=== PATIENT | male | born 1955 | race Caucasian/White ===

== ENCOUNTER → 2016-08-15 | Outpatient (CLI) | payer OTHER ==
[~2016-08-15] MED LIST: AMOX1TAB64 PO; ATOR40TA78 PO; HYDR-879 PO; LOSA100T6 PO; OMEP-110 PO; SULF1TAB24 PO
== END | disposition home or self-care (01) ==
LOC: LAB 14:52
PROVIDERS: ATTEND Orthopaedic Surgery
DX: T84.59XA Infection and inflammatory reaction due to other internal joint prosthesis, initial encounter (principal)
CPT/HCPCS: 36415; 85025; 85651; 86140

== ENCOUNTER 2016-08-16 12:50 | Inpatient (IN) | payer OTHER ==
[~2016-08-16] VITALS: Ht 182.9 cm; Wt 95.5 kg
[~2016-08-16 12:50] MED LIST changes: -AMOX1TAB64 PO; -ATOR40TA78 PO; +BUPIVACAINE/PF 0.5% ONE; -HYDR-879 PO; -LOSA100T6 PO; -OMEP-110 PO; -SULF1TAB24 PO
[2016-08-16] MEDS ORDERED: LACTATED RINGERS 1,000 ML IV SCH (13:24)
[2016-08-16] MEDS ORDERED: HYDR-879 PO (13:29)
[2016-08-16] MEDS ORDERED: AMOX1TAB64 PO (13:29)
[2016-08-16] MEDS ORDERED: SULF1TAB24 PO (13:29)
[2016-08-16] MEDS ORDERED: ATOR40TA78 PO (13:29)
[2016-08-16] MEDS ORDERED: OMEP-110 PO (13:29)
[2016-08-16] MEDS ORDERED: LOSA100T6 PO (13:29)
[2016-08-16 13:32] VITALS: BP 127/77
[2016-08-16] MEDS ORDERED: FENTANYL PF 250 MCG/5ML ONE (13:37)
[2016-08-16] MEDS ORDERED: MIDAZOLAM 1 MG/ML, 2ML ONE (13:38)
[2016-08-16 14:14] LABS: ASPARTATE AMINO TRANSFERASE 17 U/L (15-37); BLOOD UREA NITROGEN 14 mg/dL (7-18)
[2016-08-16] MEDS ORDERED: CLINDAMYCIN 150 MG/ML, 6ML ONE (14:26)
[2016-08-16] MEDS ORDERED: ROCURONIUM 10 MG/ML ONE (15:13)
[2016-08-16] MEDS ORDERED: DEXAMETHASONE 4 MG/ML, 1ML ONE (15:13)
[2016-08-16] MEDS ORDERED: SUGAMMADEX 200 MG/2 ML IVPush ONE ×2 (15:13→16:15)
[2016-08-16] MEDS ORDERED: SUCCINYLCHOLINE 20 MG/ML, 10ML ONE (15:13)
[2016-08-16] MEDS ORDERED: CEFAZOLIN 1,000 MG ONE (15:13)
[2016-08-16] MEDS ORDERED: PROPOFOL 10 MG/ML, 20ML ONE (15:13)
[2016-08-16] MEDS ORDERED: ONDANSETRON 2MG/ML, 2ML ONE (15:13)
[2016-08-16] MEDS ORDERED: VANCOMYCIN 1,000 MG ONE (15:28)
[2016-08-16] MEDS ORDERED: VANCOMYCIN 500 MG ONE (15:28)
[2016-08-16] MEDS ORDERED: VANCOMYCIN 1,900 MG in SODIUM CHLORIDE 0.9% 250 ML IV ONE (15:32)
[2016-08-16] MEDS ORDERED: MEPERIDINE/PF 25MG/0.5ML IVPush PRN (16:00)
[2016-08-16] MEDS ORDERED: ACETAMINOPHEN 325 MG TABLET PO PRN (16:00)
[2016-08-16] MEDS ORDERED: LABETALOL 5MG/ML, 20ML IV PRN (16:00)
[2016-08-16] MEDS ORDERED: hydrALAzine 20 MG/ML, 1ML IV PRN (16:00)
[2016-08-16] MEDS ORDERED: KETOROLAC 30 MG/1 ML IV PRN (16:00)
[2016-08-16] MEDS ORDERED: HYDROcodone/APAP 7.5-325MG/15ML UDC PO PRN (16:00)
[2016-08-16] MEDS ORDERED: OXYcodone 5 MG/5 ML ORAL.SOL UDC PO PRN (16:00)
[2016-08-16] MEDS ORDERED: PROMETHAZINE 25 MG/ML, 1ML IV PRN (16:00)
[2016-08-16] MEDS ORDERED: ONDANSETRON 2MG/ML, 2ML IVPush PRN (16:00)
[2016-08-16] MEDS ORDERED: MIDAZOLAM 1 MG/ML, 2ML IV PRN (16:00)
[2016-08-16] MEDS ORDERED: EPHEDRINE 50 MG/ML, 1ML IVPush PRN (16:00)
[2016-08-16] MEDS ORDERED: HYDROmorphone 1 MG/ML, 1ML IV PRN (16:00)
[2016-08-16] MEDS ORDERED: FENTANYL PF 100 MCG/2ML ONE (16:38)
[2016-08-16] MEDS: FENTANYL PF 100 MCG/2ML IV PRN ×2 (16:40→17:00)
[2016-08-16] MEDS ORDERED: OXYcodone 5 MG/5 ML ORAL.SOL UDC ONE (16:51)
[2016-08-16] MEDS ORDERED: BISACODYL 10 MG SUPP PR PRN (17:00)
[2016-08-16] MEDS ORDERED: VANCOMYCIN PMX 1GM/200ML 200 ML IVPB SCH (17:00)
[2016-08-16] MEDS ORDERED: PROMETHAZINE 25 MG/ML, 1ML IM PRN (17:00)
[2016-08-16] MEDS ORDERED: SENNA/DOCUSATE TABLET PO PRN (17:00)
[2016-08-16] MEDS ORDERED: MAGNESIUM HYDROXIDE 8%, 30ML UDC PO PRN (17:00)
[2016-08-16] MEDS ORDERED: ONDANSETRON 2MG/ML, 2ML IV PRN (17:00)
[2016-08-16] MEDS ORDERED: DIPHENHYDRAMINE 25 MG CAPSULE PO PRN (17:00)
[2016-08-16] MEDS ORDERED: KETOROLAC 30 MG/1 ML IV SCH (18:00)
[2016-08-16] MEDS ORDERED: AMPICILLIN/SULBACTAM 3 GM in SODIUM CHLORIDE 0.9% 100 ML IV SCH (18:30)
[2016-08-16 20:00] VITALS: BP 127/83
[2016-08-16] MEDS: D5%-0.45% NACL 1,000 ML IV SCH (20:46)
[2016-08-16] MEDS: AMPICILLIN/SULBACTAM 3 GM in SODIUM CHLORIDE 0.9% 100 ML IV SCH (20:46)
[2016-08-16] MEDS: KETOROLAC 30 MG/1 ML IV SCH (20:47)
[2016-08-16] MEDS: HYDROcodone/APAP 10/325 MG TABLET PO SCH (20:48)
[2016-08-16] MEDS: DOCUSATE 100 MG CAPSULE PO SCH (20:48)
[2016-08-16] MEDS: ATORVASTATIN 40 MG TABLET PO SCH (20:48)
[2016-08-17] VITALS: BP 120/67
[2016-08-17] MEDS: HYDROcodone/APAP 10/325 MG TABLET PO SCH ×6 (02:35→23:15)
[2016-08-17] MEDS: AMPICILLIN/SULBACTAM 3 GM in SODIUM CHLORIDE 0.9% 100 ML IV SCH ×4 (02:36→20:34)
[2016-08-17 04:12] VITALS: BP 107/68
[2016-08-17] MEDS: VANCOMYCIN PMX 1GM/200ML 200 ML IVPB SCH ×2 (04:16→16:24)
[2016-08-17] MEDS: KETOROLAC 30 MG/1 ML IV SCH ×2 (04:16→13:04)
[2016-08-17] MEDS: D5%-0.45% NACL 1,000 ML IV SCH ×2 (06:00→16:25)
[2016-08-17 08:32] VITALS: BP 114/73
[2016-08-17] MEDS: OMEPRAZOLE 20 MG CAPSULE.DR PO SCH (08:35)
[2016-08-17] MEDS: MULTIVITAMINS/MINERALS TABLET PO SCH (08:35)
[2016-08-17] MEDS: LOSARTAN 50MG TABLET PO SCH (08:36)
[2016-08-17] MEDS: DOCUSATE 100 MG CAPSULE PO SCH ×2 (08:36→20:34)
[2016-08-17 13:20] VITALS: BP 126/75
[2016-08-17 20:09] VITALS: BP 106/64
[2016-08-17] MEDS: ATORVASTATIN 40 MG TABLET PO SCH (20:34)
[2016-08-17] MEDS: HYDROmorphone 1 MG/ML, 1ML IV PRN (22:30)
[2016-08-18] MEDS: D5%-0.45% NACL 1,000 ML IV SCH ×2 (02:00→12:00)
[2016-08-18] MEDS: AMPICILLIN/SULBACTAM 3 GM in SODIUM CHLORIDE 0.9% 100 ML IV SCH ×3 (02:18→14:34)
[2016-08-18 02:22] VITALS: BP 108/69
[2016-08-18] MEDS: HYDROmorphone 1 MG/ML, 1ML IV PRN (02:29)
[2016-08-18] MEDS: HYDROcodone/APAP 10/325 MG TABLET PO SCH ×4 (04:14→16:00)
[2016-08-18] MEDS: VANCOMYCIN PMX 1GM/200ML 200 ML IVPB SCH ×2 (04:14→14:57)
[2016-08-18 08:05] VITALS: BP 139/83
[2016-08-18] MEDS: OMEPRAZOLE 20 MG CAPSULE.DR PO SCH (08:28)
[2016-08-18] MEDS: MULTIVITAMINS/MINERALS TABLET PO SCH (08:28)
[2016-08-18] MEDS: LOSARTAN 50MG TABLET PO SCH (08:28)
[2016-08-18] MEDS: DOCUSATE 100 MG CAPSULE PO SCH (08:28)
[2016-08-18 13:10] VITALS: BP 121/76
[2016-08-18] MEDS ORDERED: ERTAPENEM 1 GM in SODIUM CHLORIDE 0.9% 50 ML IV SCH (13:30)
[2016-08-18 15:28] VITALS: BP 121/77
[2016-08-18] MEDS ORDERED: ERTA1VIA2 IV (15:46)
[2016-08-18] MEDS ORDERED: LINE600T37 PO (15:47)
[2016-08-18] MEDS ORDERED: AMOX-291 PO (15:48)
[2016-08-18] MEDS ORDERED: DOXY100C2 PO (15:50)
[2016-08-18] MEDS ORDERED: DOXY100T PO (15:50)
[2016-08-19] MEDS ORDERED: ERTAPENEM 1 GM in SODIUM CHLORIDE 0.9% 50 ML IV SCH (08:00)
== END 2016-08-18 16:20 | disposition home or self-care (01) | DRG 857 ==
LOC: ORIP 12:50 → 4NOR 17:51
PROVIDERS: ADMIT Orthopaedic Surgery; ATTEND Orthopaedic Surgery
PROC: 0X9 Anatomical Regions, Upper Extremities, Drainage (ICD-10-PCS; 2016-08-15)
PROC: 3E0T3BZ Introduction of Anesthetic Agent into Peripheral Nerves and Plexi, Percutaneous Approach (ICD-10-PCS; 2016-08-16)
PROC: 0JBF0ZZ Excision of Left Upper Arm Subcutaneous Tissue and Fascia, Open Approach (ICD-10-PCS; principal; 2016-08-16 17:00)
DX: T81.4XXA Infection following a procedure, initial encounter (principal); L02.414 Cutaneous abscess of left upper limb; I10 Essential (primary) hypertension; K21.9 Gastro-esophageal reflux disease without esophagitis; E78.5 Hyperlipidemia, unspecified; Y83.8 Other surgical procedures as the cause of abnormal reaction of the patient, or of later complication, without mention of misadventure at the time of the procedure; Z96.612 Presence of left artificial shoulder joint; Y92.89 Other specified places as the place of occurrence of the external cause; Z79.899 Other long term (current) drug therapy
CPT/HCPCS: 36415; 80053; 87070; 87075; 87205; 93005; J0295; J0690; J1100; J1170; J1335; J1885; J2250; J2405; J2704; J3010; J3370; J3490; J0330; Q0163

== ENCOUNTER 2016-12-16 07:10 | Inpatient (IN) | payer OTHER ==
[2016-12-15 14:37] LABS: BLOOD UREA NITROGEN 10 mg/dL (7-18)
[2016-12-15 14:38] LABS: HEMATOCRIT 47.4 % (39.2-51.8); HEMOGLOBIN 15.7 g/dL (13.7-18.0); WHITE BLOOD COUNT 7.4 x10^3/uL (3.4-10)
[2016-12-15 14:41] LABS: ASPARTATE AMINO TRANSFERASE 13 U/L (15-37)
[~2016-12-16] VITALS: Ht 182.9 cm; Wt 97.8 kg
[~2016-12-16 07:10] MED LIST changes: +AMOX-291 PO; +AMOX1TAB64 PO; +ATOR40TA78 PO; -BUPIVACAINE/PF 0.5% ONE; +DOXY100C2 PO; +DOXY100T PO; +ERTA1VIA2 IV; +HYDR-879 PO; +LINE600T37 PO; +LOSA100T6 PO; +OMEP-110 PO; +SULF1TAB24 PO
[2016-12-16 07:55] VITALS: BP 129/86
[2016-12-16] MEDS ORDERED: ONDANSETRON 2MG/ML, 2ML ONE (08:00)
[2016-12-16] MEDS ORDERED: CEFAZOLIN 1,000 MG ONE ×2 (08:00)
[2016-12-16] MEDS ORDERED: PROPOFOL 10 MG/ML, 20ML ONE (08:00)
[2016-12-16] MEDS ORDERED: MIDAZOLAM 1 MG/ML, 2ML ONE (08:01)
[2016-12-16] MEDS ORDERED: SUCCINYLCHOLINE 20 MG/ML, 10ML ONE (08:01)
[2016-12-16] MEDS ORDERED: KETOROLAC 30 MG/1 ML ONE ×2 (08:01→10:07)
[2016-12-16] MEDS ORDERED: FENTANYL PF 250 MCG/5ML ONE (08:01)
[2016-12-16] MEDS ORDERED: LIDOCAINE 4%, 4 ML SYR/CANN TP ONE (08:02)
[2016-12-16] MEDS ORDERED: LACTATED RINGERS 1,000 ML IV SCH (08:17)
[2016-12-16] MEDS ORDERED: BUPIVACAINE/PF 0.5% ONE (09:21)
[2016-12-16] MEDS ORDERED: CLINDAMYCIN 150 MG/ML, 6ML ONE (09:42)
[2016-12-16] MEDS ORDERED: DEXAMETHASONE 4 MG/ML, 1ML ONE ×2 (09:43)
[2016-12-16] MEDS ORDERED: VANCOMYCIN 1,000 MG ONE (09:52)
[2016-12-16] MEDS: D5%-0.45% NACL 1,000 ML IV SCH ×2 (10:15→20:59)
[2016-12-16] MEDS ORDERED: VANCOMYCIN 1,000 MG IM ONE (10:22)
[2016-12-16] MEDS ORDERED: HYDROmorphone 2 MG/ML, 1ML ONE (10:25)
[2016-12-16] MEDS ORDERED: ACETAMINOPHEN 650 MG/20.3 ML UDC ONE (10:25)
[2016-12-16] MEDS ORDERED: OXYcodone 5 MG/5 ML ORAL.SOL UDC ONE (10:26)
[2016-12-16] MEDS: HYDROmorphone 1 MG/ML, 1ML IV PRN ×5 (10:29→11:24)
[2016-12-16] MEDS ORDERED: morphine SULFATE 10 MG/ML, 1ML IV PRN (10:30)
[2016-12-16] MEDS ORDERED: PROMETHAZINE 25 MG/ML, 1ML IV PRN (10:30)
[2016-12-16] MEDS ORDERED: BISACODYL 10 MG SUPP PR PRN (10:30)
[2016-12-16] MEDS ORDERED: MAGNESIUM HYDROXIDE 8%, 30ML UDC PO PRN (10:30)
[2016-12-16] MEDS ORDERED: SENNA/DOCUSATE TABLET PO PRN (10:30)
[2016-12-16] MEDS ORDERED: FENTANYL PF 100 MCG/2ML IV PRN (10:30)
[2016-12-16] MEDS ORDERED: OXYcodone 5 MG/5 ML ORAL.SOL UDC PO PRN (10:30)
[2016-12-16] MEDS ORDERED: ACETAMINOPHEN 325 MG TABLET PO PRN (10:30)
[2016-12-16] MEDS ORDERED: ONDANSETRON 2MG/ML, 2ML IV PRN (10:30)
[2016-12-16] MEDS ORDERED: DIPHENHYDRAMINE 25 MG CAPSULE PO PRN (10:30)
[2016-12-16] MEDS ORDERED: PROMETHAZINE 25 MG/ML, 1ML IM PRN (10:30)
[2016-12-16] MEDS ORDERED: DIPHENHYDRAMINE 50 MG/ML, 1ML ONE (10:43)
[2016-12-16] MEDS: DIPHENHYDRAMINE 50 MG/ML, 1ML IVPush PRN ×2 (10:47→11:20)
[2016-12-16] MEDS ORDERED: HYDROmorphone 1 MG/ML, 1ML ONE (11:20)
[2016-12-16 13:43] VITALS: BP 119/78
[2016-12-16] MEDS: HYDROcodone/APAP 10/325 MG TABLET PO PRN ×3 (15:19→23:34)
[2016-12-16] MEDS: CLINDAMYCIN PMX 600MG/50ML 50 ML IV SCH ×2 (15:19→21:41)
[2016-12-16 19:33] VITALS: BP 114/74
[2016-12-16] MEDS: ATORVASTATIN 40 MG TABLET PO SCH (20:59)
[2016-12-16] MEDS: ASPIRIN 81 MG TABLET EC PO SCH (20:59)
[2016-12-16] MEDS: DOCUSATE 100 MG CAPSULE PO SCH (20:59)
[2016-12-16] MEDS: VANCOMYCIN PMX 1GM/200ML 200 ML IVPB SCH (22:55)
[2016-12-17 00:59] VITALS: BP 124/76
[2016-12-17] MEDS ORDERED: HYDR-3307 PO (01:38)
[2016-12-17] MEDS ORDERED: ONDA4TAB7 PO (01:39)
[2016-12-17] MEDS: HYDROcodone/APAP 10/325 MG TABLET PO PRN ×5 (03:28→21:03)
[2016-12-17] MEDS: CLINDAMYCIN PMX 600MG/50ML 50 ML IV SCH ×4 (03:28→22:01)
[2016-12-17 03:55] VITALS: BP 133/84
[2016-12-17] MEDS: D5%-0.45% NACL 1,000 ML IV SCH ×3 (04:02→23:21)
[2016-12-17 06:57] VITALS: BP 137/80
[2016-12-17] MEDS: DOCUSATE 100 MG CAPSULE PO SCH ×2 (09:02→20:59)
[2016-12-17] MEDS: LOSARTAN 50MG TABLET PO SCH (09:02)
[2016-12-17] MEDS: OMEPRAZOLE 20 MG CAPSULE.DR PO SCH (09:02)
[2016-12-17] MEDS: ASPIRIN 81 MG TABLET EC PO SCH ×2 (09:02→20:59)
[2016-12-17] MEDS: VANCOMYCIN PMX 1GM/200ML 200 ML IVPB SCH ×2 (11:02→23:00)
[2016-12-17 14:30] VITALS: BP 148/88
[2016-12-17 19:25] VITALS: BP 137/84
[2016-12-17] MEDS: ATORVASTATIN 40 MG TABLET PO SCH (20:59)
[2016-12-18 02:38] VITALS: BP 115/69
[2016-12-18] MEDS: HYDROcodone/APAP 10/325 MG TABLET PO PRN ×5 (03:56→22:47)
[2016-12-18] MEDS: CLINDAMYCIN PMX 600MG/50ML 50 ML IV SCH ×4 (03:56→22:00)
[2016-12-18 08:10] VITALS: BP 134/87
[2016-12-18] MEDS: ASPIRIN 81 MG TABLET EC PO SCH ×2 (08:15→20:49)
[2016-12-18] MEDS: OMEPRAZOLE 20 MG CAPSULE.DR PO SCH (08:15)
[2016-12-18] MEDS: LOSARTAN 50MG TABLET PO SCH (08:16)
[2016-12-18] MEDS: DOCUSATE 100 MG CAPSULE PO SCH ×2 (08:16→20:48)
[2016-12-18] MEDS: VANCOMYCIN PMX 1GM/200ML 200 ML IVPB SCH (12:02)
[2016-12-18] MEDS: D5%-0.45% NACL 1,000 ML IV SCH ×2 (12:28→22:03)
[2016-12-18 14:19] VITALS: BP 123/74
[2016-12-18] MEDS: ATORVASTATIN 40 MG TABLET PO SCH (20:49)
[2016-12-18 20:55] VITALS: BP 137/85
[2016-12-19] MEDS: VANCOMYCIN PMX 1GM/200ML 200 ML IVPB SCH (00:02)
[2016-12-19] MEDS: CLINDAMYCIN PMX 600MG/50ML 50 ML IV SCH ×2 (03:41→10:07)
[2016-12-19 04:02] VITALS: BP 130/77
[2016-12-19] MEDS ORDERED: MIDAZOLAM 1 MG/ML, 2ML ONE (06:10)
[2016-12-19] MEDS ORDERED: FENTANYL PF 100 MCG/2ML ONE (06:11)
[2016-12-19] MEDS ORDERED: ROCURONIUM 10 MG/ML ONE (06:15)
[2016-12-19] MEDS ORDERED: LIDOCAINE-MPF 2% ,5ML ONE (06:15)
[2016-12-19] MEDS ORDERED: PROPOFOL 10 MG/ML, 20ML ONE (06:15)
[2016-12-19] MEDS ORDERED: SUCCINYLCHOLINE 20 MG/ML, 10ML ONE (06:15)
[2016-12-19] MEDS ORDERED: BACITRACIN 50,000 UNIT ONE (06:24)
[2016-12-19] MEDS ORDERED: ONDANSETRON 2MG/ML, 2ML ONE (06:45)
[2016-12-19] MEDS ORDERED: LIDOCAINE 4%, 4 ML SYR/CANN TP ONE (06:45)
[2016-12-19] MEDS ORDERED: KETOROLAC 30 MG/1 ML ONE (06:45)
[2016-12-19] MEDS ORDERED: DEXAMETHASONE 4 MG/ML, 5ML ONE (06:45)
[2016-12-19] MEDS ORDERED: OXYcodone 5 MG/5 ML ORAL.SOL UDC PO PRN (07:00)
[2016-12-19] MEDS ORDERED: ACETAMINOPHEN 325 MG TABLET PO PRN (07:00)
[2016-12-19] MEDS ORDERED: FENTANYL PF 100 MCG/2ML IV PRN (07:00)
[2016-12-19] MEDS ORDERED: PROMETHAZINE 25 MG/ML, 1ML IV PRN (07:00)
[2016-12-19] MEDS ORDERED: MEPERIDINE/PF 25MG/0.5ML IVPush PRN (07:00)
[2016-12-19] MEDS ORDERED: HYDROmorphone 1 MG/ML, 1ML IV PRN (07:00)
[2016-12-19] MEDS ORDERED: ACETAMINOPHEN 650 MG/20.3 ML UDC ONE (07:49)
[2016-12-19] MEDS ORDERED: OXYcodone 5 MG/5 ML ORAL.SOL UDC ONE (07:49)
[2016-12-19] MEDS: D5%-0.45% NACL 1,000 ML IV SCH (08:15)
[2016-12-19 09:15] VITALS: BP 134/81
[2016-12-19] MEDS: HYDROcodone/APAP 10/325 MG TABLET PO PRN (09:36)
[2016-12-19] MEDS: DOCUSATE 100 MG CAPSULE PO SCH (10:07)
[2016-12-19] MEDS: OMEPRAZOLE 20 MG CAPSULE.DR PO SCH (10:07)
[2016-12-19] MEDS: ASPIRIN 81 MG TABLET EC PO SCH (10:07)
[2016-12-19] MEDS: LOSARTAN 50MG TABLET PO SCH (10:07)
== END 2016-12-19 13:12 | disposition home or self-care (01) | DRG 572 ==
LOC: OUT 07:10 → ORIP 10:15 → 4NOR 11:46 → DCLOUNGE 12-19 12:55
PROVIDERS: ADMIT Orthopaedic Surgery; ATTEND Orthopaedic Surgery
PROC: 0JBF0ZZ Excision of Left Upper Arm Subcutaneous Tissue and Fascia, Open Approach (ICD-10-PCS; principal; 2016-12-16 09:00)
PROC: 0JBF0ZZ Excision of Left Upper Arm Subcutaneous Tissue and Fascia, Open Approach (ICD-10-PCS; 2016-12-19)
DX: L02.414 Cutaneous abscess of left upper limb (principal); Z96.619 Presence of unspecified artificial shoulder joint
CPT/HCPCS: 36415; 80053; 85025; 87070; 87075; 87176; 87205; 93005; J0690; J1100; J1170; J1885; J2250; J2405; J2704; J3010; J3370; J3490; J0330; J1200; J7120; Q0163